=== PATIENT | male | born 1975 | race Caucasian/White ===

== ENCOUNTER 2023-06-09 12:18 | Inpatient (IN) | payer BC ==
[~2023-06-09] VITALS: Ht 177.8 cm; Wt 97.5 kg
[2023-06-09 16:27] LABS: BASOPHILS % 0.2 % (0.0-2.0); EOSINOPHILS % 0.1 % (0.0-5.0); HEMATOCRIT. 41.7 % (42.0-52.0); HEMOGLOBIN. 14.6 g/dL (14.0-18.0); LYMPHOCYTES % 19.3 % (20.0-50.0); MEAN CORPUSCULAR HEMOGLOBIN 29.2 pg (28.0-32.0); MEAN CORPUSCULAR HGB CONC 35.1 g/dL (31.0-37.0); MEAN CORPUSCULAR VOLUME 83.3 fL (80.0-94.0); MEAN PLATELET VOLUME 7.3 fl (7.4-10.4); MONOCYTES % 6.5 % (2.0-8.0); NEUTROPHILS % 73.9 % (40.0-76.0); PLATELET 344 x1000/uL (130-400); RED CELL DISTRIBUTION WIDTH 13.2 % (11.6-14.6); WHITE BLOOD COUNT 10.7 x1000/uL (4.5-11.0)
[2023-06-09] MEDS: HYDROCODONE/ACETAMINOPHEN 5/325MG TABLET PO ONE (16:36)
[2023-06-09] MEDS: KETOROLAC 30MG/ML VIAL IM ONE (16:37)
[2023-06-09 16:54] LABS: ALANINE AMINOTRANSFERASE 21 IU/L (10-49); ASPARTATE AMINOTRANSFERASE 16 IU/L (<34); BILIRUBIN TOTAL 0.8 mg/dL (0.1-1.0); CALCIUM 9.6 mg/dL (8.7-10.4); CARBON DIOXIDE 25 mEq/L (21-32); CHLORIDE 106 mEq/L (98-107); CREATININE 1.2 mg/dL (0.6-1.3); GLUCOSE 110 mg/dL (70-105); POTASSIUM 3.9 mEq/L (3.5-5.1); PROTEIN TOTAL 8.1 g/dL (6.0-8.3); SODIUM 138 mEq/L (136-145); UREA NITROGEN BLOOD 11 mg/dL (9-23)
[2023-06-09 22:26] VITALS: BP 147/98; PULSE 62; RESP 20; TEMP 96.7
[2023-06-09] MEDS ORDERED: MAGNESIUM/ALUMINUM HYDROXIDE/SIMETHICONE 30ML UDC PO PRN (23:00)
[2023-06-09] MEDS ORDERED: CLONIDINE 0.1MG TABLET PO PRN (23:00)
[2023-06-09] MEDS ORDERED: DIPHENHYDRAMINE 50MG/ML VIAL IV PRN (23:00)
[2023-06-09] MEDS ORDERED: ZOLPIDEM TARTRATE 5MG TABLET PO PRN (23:00)
[2023-06-09] MEDS ORDERED: ACETAMINOPHEN 325MG TABLET PO PRN ×2 (23:00)
[2023-06-09] MEDS ORDERED: ONDANSETRON HCL 4MG/2ML INJ IV PRN (23:00)
[2023-06-09] MEDS ORDERED: NALOXONE HCL 0.4MG/ML VIAL IV PRN (23:15)
[2023-06-10] VITALS: BP 137/87; PULSE 60; RESP 18; TEMP 98.3
[2023-06-10 00:02] VITALS: BP 147/98; PULSE 62; RESP 20; TEMP 96.7
[2023-06-10] MEDS: KETOROLAC 30MG/ML VIAL IV PRN (00:13)
[2023-06-10] MEDS: MVI, ADULT NO.1 10 ML, FOLIC ACID 1 MG, THIAMINE HCL 100 MG in SODIUM CHLORIDE 0.9% 1,0... IV ONE (02:00)
[2023-06-10] MEDS: HYDROCODONE/ACETAMINOPHEN 5/325MG TABLET PO PRN (02:32)
[2023-06-10 04:00] VITALS: BP 135/89; PULSE 61; RESP 20; TEMP 97.8
[2023-06-10] MEDS: SODIUM CHLORIDE 0.9% INJ 3ML FLUSH IVF SCH (06:44)
[2023-06-10 16:00] VITALS: BP 145/92; PULSE 65; RESP 18; TEMP 97.6
[2023-06-10 17:31] VITALS: BP 145/92; PULSE 65; TEMP 97.6; O2SAT 97
[2023-06-10] MEDS ORDERED: CEFAZOLIN 1000MG PREMIX 50 ML IV SCH (18:00)
[2023-06-10] MEDS ORDERED: CEFAZOLIN SODIUM 1000MG/VIAL IV SCH (22:00)
== END 2023-06-10 19:50 | disposition home or self-care (01) | DRG 603 ==
LOC: ER 12:18 → 8WST 19:33 → EDBEDREQ 20:58 → EDBEDREQTM 20:58 → EDBEDREQSVC 20:58
PROVIDERS: ADMIT Internal Medicine; ATTEND Internal Medicine
DX: L03.221 Cellulitis of neck (principal); M50.20 Other cervical disc displacement, unspecified cervical region; Z79.899 Other long term (current) drug therapy
CPT/HCPCS: 36415; 72141; 80053; 85025; 99285; J0690; J1885; J3411; J3490; J7030